=== PATIENT | female | born 1995 | race Caucasian/White ===

== ENCOUNTER 2022-05-29 21:42 | Emergency (ER) | payer OTHER, SELFPAY ==
[2022-05-29] MEDS ORDERED: Ibuprofen 800 MG TAB ONE (22:31)
[2022-05-29] MEDS ORDERED: HYDROcodone/Acetaminophen 5/325 mg Tablet ONE (22:31)
== END 2022-05-29 22:35 | disposition home or self-care (01) ==
LOC: MADERS 21:42
DX: S03.2XXA Dislocation of tooth, initial encounter (principal); M26.34 Vertical displacement of fully erupted tooth or teeth; W54.1XXA Struck by dog, initial encounter; Z79.899 Other long term (current) drug therapy
CPT/HCPCS: 99282

== ENCOUNTER 2022-12-24 01:07 | Emergency (ER) | payer OTHER, SELFPAY ==
[2022-12-24 01:52] LABS: #Lymphocytes 2.3 thou/uL (1.20-3.40); #Monocytes 0.5 thou/uL (0.11-0.59); #Neutrophils 6.5 thou/uL (1.40-6.50); %Basophils 0.4 % (0.0-1.0); %Eosinophils 0.2 % (0.0-10.0); %Lymphocytes 24.7 % (21.0-51.0); %Monocytes 5.4 % (0.0-10.0); %Neutrophils 69.3 % (42.0-75.0); Hemoglobin 13.2 g/dL (12.0-16.0); Mean Corpuscular Hemoglobin 26.2 pg (27.0-31.0); Mean Corpuscular Volume 77.3 fl (78.0-98.0); Mean Platelet Volume 5.8 fL (7.4-10.4); Platelet Count 299 10x3/uL (130-400); RBC Distribution Width 12.1 % (11.5-14.5); Red Blood Cell (RBC) Count 5.05 mill/uL (4.20-5.40); White Blood Cell (WBC) Count 9.4 10x3/uL (4.8-10.8)
[2022-12-24] MEDS ORDERED: Fentanyl 100 MCG/2 ML VIAL ONE (01:53)
[2022-12-24] MEDS ORDERED: Orphenadrine Citrate 60 MG/2 ML VIAL ONE (01:54)
[2022-12-24 02:17] LABS: BHCG - Serum Negative (NEGATIVE); Pregs Control Background? CLEAR/WHITE (CLR/WHITE); Pregs Control Bar Appear? YES (CONTROL BAR)
[2022-12-24 02:19] LABS: ALT (SGPT) 27 U/L (8-55); AST (SGOT) 22 U/L (5-34); Albumin 4.2 g/dL (3.5-5.0); Alkaline Phosphatase 65 U/L (40-110); Anion Gap 12 mmol/L (10-20); BUN (Urea Nitrogen) 14 mg/dL (7.0-18.7); Bilirubin, Total 0.2 mg/dL (0.2-1.2); Calc. Creatinine Clearance 0 mL/min (70-130); Calcium 9.5 mg/dL (7.8-10.44); Carbon Dioxide 27 mmol/L (22-29); Chloride 107 mmol/L (98-107); Estimated GFR 70; Globulin 3.6 g/dL (2.4-3.5); Glucose 86 mg/dL (70-105); Potassium 4.3 mmol/L (3.5-5.1); Protein, Total 7.8 g/dL (6.0-8.3); Sodium 142 mmol/L (136-145)
[2022-12-24] MEDS ORDERED: Ketorolac Tromethamine 30 MG/ML VIAL ONE (02:45)
[2022-12-24] MEDS ORDERED: Lactated Ringer's 1,000 ML BAG ONE (06:16)
[2022-12-24] MEDS ORDERED: Iopamidol 370 76% 100 ML VIAL ONE (08:26)
== END 2022-12-24 06:30 | disposition home or self-care (01) ==
LOC: MADERS 01:07
DX: R10.30 Lower abdominal pain, unspecified (principal); M54.2 Cervicalgia; M54.9 Dorsalgia, unspecified; V47.5XXA Car driver injured in collision with fixed or stationary object in traffic accident, initial encounter; Y92.410 Unspecified street and highway as the place of occurrence of the external cause; Z79.899 Other long term (current) drug therapy
CPT/HCPCS: 70450; 71260; 72125; 74177; 80053; 84703; 85025; 94760; 96374; 96375; J1885; J2360; J3010; J7120; Q9967